=== PATIENT | male | born 1955 | race Caucasian/White ===

== ENCOUNTER 2017-01-25 11:02 | Emergency (ER) | payer OTHER ==
[2017-01-25 11:15] VITALS: BP 133/76; PULSE 68; RESP 18; TEMP 98.2; O2SAT 95
--- NOTE | 2017-01-25 11:26 | CPEKG ---
Heart Rate: 63 RR Interval: 952 P-R Interval: 181 QRSD Interval: 76 QT Interval: 448 QTC Interval: 459 P [place]: 57 QRS [place]: -24 T Wave [place]: 12 EKG Severity - ABNORMAL ECG - EKG Impression: VENTRICULAR-PACED COMPLEXES EKG Impression: BORDERLINE LEFT AXIS DEVIATION Electronically Signed By: Adilene Villasenor 25-Jan-2017 14:30:41
--- NOTE | 2017-01-25 12:12 | UCPHY ---
H & P Time Seen by Provider: 01/25/17 11:27 Patient Type: New HPI/ROS: HPI Short of breath at altitude, tingling in face. 61-year-old male by private vehicle with his . This patient is visiting the area from [facility]. He was in [place] yesterday at 10- [id number] feet. He reports that he started feeling short of breath and nauseous and lightheaded. He reports that this persisted throughout the afternoon. He reports that it got worse last night and he and his got in the car and came down to 5000 feet here in [place]. He reports that he feels much better but tells me that he had some tingling in his hands and his face and lips on the car ride down. All things considered he wanted to be checked out. ROS: Constitutional: No fever, no chills. As above. Eyes: No discharge. No changes in vision. ENT: No sore throat. No nasal congestion or rhinorrhea. Respiratory: No cough. As above. Cardiac: No chest pain, no palpitations. Gastrointestinal: No abdominal pain, no vomiting, no diarrhea. As above. Genitourinary: No hematuria. No dysuria or increased frequency with urination. Musculoskeletal: No back pain. No neck pain. No myalgias or arthralgias. Skin: No rashes. Neurological: No headache. No focal weakness or altered sensation. As above. Past medical history: Diverticulosis and hyperlipidemia. Primary care is in [facility]. Social history: Nonsmoker. Here with his . Son lives in [place]. Physical Exam: General Appearance: Alert, no distress. This patient is responding to questions appropriately and in full sentences. This patient appears well- hydrated and well-nourished. No voice changes. Eyes: Pupils equal and round no pallor or injection. No lid edema, erythema or injection. ENT, Mouth: Mucous membranes are moist. The pharyngeal tissues are unremarkable. No edema or swelling. No asymmetry suggestive of abscess. No erythema or exudates. No stridor on auscultation of his neck Respiratory: There are no retractions, lungs are clear to auscultation with good air movement bilaterally. Cardiovascular: Regular rate and rhythm. No murmur. Gastrointestinal: Abdomen is soft and nontender, no masses, bowel sounds normal. No focal tenderness at McBurney's point. No Alcocer sign. Neurological: Motor sensory function is grossly intact. Cranial nerves are normal. Gait is normal. Skin: Warm and dry, no rashes. Musculoskeletal: Neck is supple and nontender. Extremities are symmetrical. No lower extremity edema. All joints range without pain or impingement. Psychiatric: No agitation. No depression. Database: EKG: Imaging: Procedures: Emergency department course: Vital signs reviewed and are normal. This patient's physical examination is unremarkable for any signs of acute mountain sickness, ongoing high altitude pulmonary edema or high altitude cerebral edema. He feels comfortable going home and I feel he is safe for discharge. He has been instructed not to go back to altitude from here during this visit. He is to return home to [place] in 3 days. I advised to follow up with his primary care physician when he returns home. Return to Urgent Care/emergency department precautions discussed with him. All of his questions were answered. He was discharged in good condition. Differential Diagnosis: The differential diagnosis on this patient includes but is not limited to acute mountain sickness. High altitude cerebral edema, influenza, serious bacterial infection, acute coronary syndrome, congestive heart failure unlikely. This represents a partial list of diagnoses considered. These considerations are based on history, physical exam, past history, reassessment and diagnostic testing. Smoking Status: Never smoked Constitutional: Initial Vital Signs Temperature (C) 36.8 C 01/25/17 11:10 Heart Rate 68 01/25/17 11:10 Respiratory Rate 18 01/25/17 11:10 Blood Pressure 133/76 H 01/25/17 11:10 O2 Sat (%) 95 01/25/17 11:10 O2 Delivery Mode Room Air Allergies/Adverse Reactions: No Known Allergies Allergy (Unverified 01/25/17 11:09) Home Medications: Medication Instructions Recorded Crestor 5mg 01/25/17 Multivits And Supplements 01/25/17 Triamterene-Hctz 37.5-25 mg Cp 01/25/17 Departure - Departure Disposition: Home, Routine, Self-Care Clinical Impression: Acute mountain sickness Condition: Good Instructions: Mountain Sickness (ED) Additional Instructions: Read and follow provided instructions. Follow-up with your primary care physician when he returns home to [place] as needed. Do not go back to altitude during this visit as discussed. Return to the emergency department for worsening symptoms or other serious concerns. Referrals: NANCY HAAS MD [Other] - As per Instructions - PQRS PQRS Measurement: 134: Depression screening and followup, PRIME MD-PHQ2 (12 years and older) Over the last 2 weeks, how often have you been bothered by any of the following problems? 1. Feeling down, depressed, or hopeless? 2. Little interest or pleasure in doing things? Answered no to both questions. 130: Documentation of medications. Reviewed all patient medications, doses, route and frequency. 226: Do you smoke? No. 47: 65 and older: Advanced care planning. Patient designates surrogate decision maker as spouse. 51: 18 years old and older with diagnosis of COPD, spirometry performance. NA 52: 18 years old and older with COPD and symptoms of COPD or FEV1<60% predicted prescribed a B Agonist. NA
== END 2017-01-25 12:17 | disposition home or self-care (01) ==
LOC: CED 11:02
DX: T70.29XA Other effects of high altitude, initial encounter (principal); W94.11XA Exposure to residence or prolonged visit at high altitude, initial encounter
CPT/HCPCS: 99203-PO; G0463-PO